=== PATIENT | female | born 1935 | race Native Hawaiian/Other Pacific Islander ===

== ENCOUNTER 2017-08-28 09:15 | Outpatient (CLI) | payer OTHER | END 2017-08-28 10:30 | disposition home or self-care (01) | LOC: MAMMO 09:15 | DX: N64.59 Other signs and symptoms in breast (principal) ==

== ENCOUNTER 2017-09-16 12:53 | Outpatient (CLI) | payer OTHER | END 2017-09-16 14:00 | disposition home or self-care (01) | LOC: US 12:53 | DX: R42 Dizziness and giddiness (principal) ==

== ENCOUNTER 2018-03-02 16:12 | Outpatient (CLI) | payer OTHER | END 2018-03-02 20:51 | disposition home or self-care (01) | LOC: US 16:12 | DX: M79.605 Pain in left leg (principal); M79.89 Other specified soft tissue disorders ==

== ENCOUNTER 2018-03-09 10:25 | Outpatient (CLI) | payer OTHER ==
[2018-03-09 11:07] LABS: PLATELET COUNT 399 K/uL (152-353)
== END 2018-03-09 18:53 | disposition home or self-care (01) ==
LOC: LABW 10:25
PROVIDERS: Nurse Practitioner
DX: E78.4 Other hyperlipidemia (principal); R53.83 Other fatigue; I10 Essential (primary) hypertension; E55.9 Vitamin D deficiency, unspecified; D51.8 Other vitamin B12 deficiency anemias
CPT/HCPCS: 36415; 80053; 80061; 82306; 82607; 83735; 84439; 84443; 85027

== ENCOUNTER 2018-05-20 10:17 | Outpatient (CLI) | payer OTHER | END 2018-05-20 22:38 | disposition home or self-care (01) | LOC: CT 10:17 | DX: M54.89 Other dorsalgia (principal) ==

== ENCOUNTER 2019-05-27 17:26 | Emergency (ER) | payer OTHER ==
[~2019-05-27] VITALS: Ht 261.6 cm; Wt 72.6 kg
[2019-05-27 22:45] VITALS: BP 135/78; TEMP 98.2
== END 2019-05-27 22:45 | disposition home or self-care (01) ==
LOC: ED 17:26
DX: M25.511 Pain in right shoulder (principal)
CPT/HCPCS: 96372; 99283; J1885; J2270; J2405

== ENCOUNTER 2019-09-22 07:46 | Inpatient (IN) | payer OTHER ==
[~2019-09-22] VITALS: Ht 161.3 cm; Wt 77.6 kg
[2019-09-22 07:52] VITALS: BP 176/80; TEMP 97.2
[2019-09-22] MEDS ORDERED: KAPSPARGO SPRIN50 MG PO (08:06)
[2019-09-22] MEDS ORDERED: RANITIDINE HYD300 MG PO (08:07)
[2019-09-22] MEDS ORDERED: LORA0.5T17 PO (08:13)
[2019-09-22] MEDS ORDERED: OMEP40CA PO (08:15)
[2019-09-22] MEDS ORDERED: HYDR25TA60 PO (08:15)
[2019-09-22] MEDS ORDERED: TRAZODONE HYDR100 MG PO (08:23)
[2019-09-22] MEDS ORDERED: SIMV40TA57 PO (08:23)
[2019-09-22 08:30] VITALS: BP 165/69
[2019-09-22] MEDS ORDERED: DICYCLOMINE HYD10 MG PO (08:32)
[2019-09-22] MEDS ORDERED: UNITH DIRECT25 MCG PO (08:33)
[2019-09-22] MEDS ORDERED: IRBESARTAN75 MG PO (08:34)
[2019-09-22 08:39] LABS: PLATELET COUNT 356 K/uL (152-353)
[2019-09-22 08:47] LABS: POTASSIUM 4.1 mmol/L (3.6-5.2)
[2019-09-22 09:30] VITALS: BP 154/63
[2019-09-22 13:07] VITALS: BP 182/77; TEMP 97.5; Ht 161.3 cm; Wt 77.6 kg
[2019-09-22 16:00] VITALS: BP 165/85; TEMP 97.9
[2019-09-22 20:00] VITALS: BP 161/71; TEMP 98.8
[2019-09-23] VITALS: BP 164/73; TEMP 97.9
[2019-09-23 04:00] VITALS: BP 166/75; TEMP 97.8
[2019-09-23 04:52] LABS: PLATELET COUNT 423 K/uL (152-353)
[2019-09-23 05:09] LABS: POTASSIUM 4.6 mmol/L (3.6-5.2)
[2019-09-23 08:00] VITALS: BP 183/91; TEMP 97.9
[2019-09-23 12:00] VITALS: BP 178/79; TEMP 98.1
[2019-09-23 16:00] VITALS: BP 143/69; TEMP 97.7
[2019-09-23 20:00] VITALS: BP 138/66; TEMP 98.2
[2019-09-24] VITALS (7 sets, daily range): BP systolic 121–181; BP diastolic 52–87; TEMP 97.4–98.8
[2019-09-24 11:39] LABS: PLATELET COUNT 349 K/uL (152-353)
[2019-09-24 11:59] LABS: POTASSIUM 3.7 mmol/L (3.6-5.2)
[2019-09-25 04:00] VITALS: BP 176/90; TEMP 98.3
[2019-09-25 12:00] VITALS: BP 177/75; TEMP 98.2
[2019-09-25 16:00] VITALS: BP 193/83; TEMP 98.5
[2019-09-25 20:00] VITALS: BP 154/63; TEMP 98.1
[2019-09-26] VITALS: BP 137/55; TEMP 97.5
[2019-09-26 04:00] VITALS: BP 134/55; TEMP 98.3
[2019-09-26 08:00] VITALS: BP 169/72; TEMP 97.5
[2019-09-26 16:00] VITALS: BP 183/77; TEMP 98.4
[2019-09-26 20:00] VITALS: BP 179/83; TEMP 98
[2019-09-27] VITALS: BP 145/59; TEMP 98.3
[2019-09-27 04:00] VITALS: BP 158/64; TEMP 98.1
[2019-09-27 08:00] VITALS: BP 199/78; TEMP 96.9
[2019-09-27 12:00] VITALS: BP 174/73; TEMP 98.6
[2019-09-27 16:00] VITALS: BP 165/76; TEMP 98.3
[2019-09-27 20:00] VITALS: BP 161/71; TEMP 98.2
[2019-09-28] VITALS: BP 169/80; TEMP 97.9
[2019-09-28 04:00] VITALS: BP 182/87; TEMP 98.5
[2019-09-28 08:00] VITALS: BP 184/80; TEMP 98.2
== END 2019-09-28 11:00 | disposition home or self-care (01) | DRG 149 ==
LOC: ED 07:46 → MED/SURG 09:55 → ED 09:55 → MED/SURG 09:56
PROVIDERS: Emergency Medicine; ADMIT Internal Medicine
DX: H81.13 Benign paroxysmal vertigo, bilateral (principal); N39.0 Urinary tract infection, site not specified; I10 Essential (primary) hypertension; E03.8 Other specified hypothyroidism; K21.9 Gastro-esophageal reflux disease without esophagitis; E78.49 Other hyperlipidemia; F41.8 Other specified anxiety disorders; M79.7 Fibromyalgia; B96.20 Unspecified Escherichia coli [E. coli] as the cause of diseases classified elsewhere
CPT/HCPCS: 80048; 80053; 81000; 84443; 85027; 87077; 87086; 87088; 87186; 87651; 93005; 99283; J0360; J0696; J1650; J3490

== ENCOUNTER 2019-10-18 09:20 | Emergency (ER) | payer OTHER ==
[~2019-10-18] VITALS: Ht 161.3 cm; Wt 72.6 kg
[~2019-10-18 09:20] MED LIST: DICYCLOMINE HYD10 MG PO; HYDR25TA60 PO; IRBESARTAN75 MG PO; KAPSPARGO SPRIN50 MG PO; LORA0.5T17 PO; OMEP40CA PO; RANITIDINE HYD300 MG PO; SIMV40TA57 PO; TRAZODONE HYDR100 MG PO; UNITH DIRECT25 MCG PO
[2019-10-18 11:55] VITALS: BP 152/67; TEMP 97.6
== END 2019-10-18 11:55 | disposition home or self-care (01) ==
LOC: ED 09:20
DX: N39.0 Urinary tract infection, site not specified (principal); S09.8XXA Other specified injuries of head, initial encounter; W01.198A Fall on same level from slipping, tripping and stumbling with subsequent striking against other object, initial encounter; Z91.81 History of falling; Y92.89 Other specified places as the place of occurrence of the external cause
CPT/HCPCS: 81000; 87077; 87086; 87088; 87186; 99282

== ENCOUNTER 2021-05-24 15:40 | Observation (INO) | payer OTHER ==
[~2021-05-24] VITALS: Ht 162.6 cm; Wt 81.2 kg
[2021-05-24 15:45] VITALS: BP 156/77; TEMP 99
[2021-05-24 16:06] LABS: PLATELET COUNT 494 K/uL (152-353)
[2021-05-24 16:14] LABS: POTASSIUM 4.1 mmol/L (3.6-5.2); SODIUM 129 mmol/L (136-145)
[2021-05-24 16:28] LABS: PARTIAL THROMBOPLASTIN TIME 23.9 SECONDS (24.5-33.6)
[2021-05-24 16:45] VITALS: BP 148/68
[2021-05-24 18:34] VITALS: BP 163/63; TEMP 98.2; Ht 162.6 cm; Wt 81.2 kg
[2021-05-24 20:00] VITALS: BP 147/67; TEMP 97.9
[2021-05-24] MEDS ORDERED: LEVO-T25 MCG PO (21:20)
[2021-05-24] MEDS ORDERED: CITALOPRAM10 M1 PO (21:22)
[2021-05-24] MEDS ORDERED: ALLERGY RELF10 MG PO (21:23)
[2021-05-24] MEDS ORDERED: NITROFURANTOIN100 MG PO (21:26)
[2021-05-24 23:54] VITALS: BP 149/68; TEMP 98.1
[2021-05-25 08:00] VITALS: BP 172/80; TEMP 97.7
[2021-05-25 12:00] VITALS: BP 177/75; TEMP 98.3
[2021-05-25 12:26] LABS: POTASSIUM 4.4 mmol/L (3.6-5.2)
[2021-05-25 12:39] LABS: PLATELET COUNT 496 K/uL (152-353)
[2021-05-25 16:00] VITALS: BP 188/88; TEMP 98.5
[2021-05-25 20:00] VITALS: BP 186/78; TEMP 98.1
[2021-05-25 21:03] VITALS: BP 165/80
[2021-05-25 23:52] VITALS: BP 149/72; TEMP 98
[2021-05-26 04:08] VITALS: BP 155/73; TEMP 97.7
[2021-05-26 05:09] LABS: PLATELET COUNT 443 K/uL (152-353)
[2021-05-26 05:13] LABS: POTASSIUM 4.2 mmol/L (3.6-5.2)
[2021-05-26 08:00] VITALS: BP 168/82; TEMP 98
[2021-05-26 12:00] VITALS: BP 165/77; TEMP 98.1
[2021-05-26 16:00] VITALS: BP 148/62; TEMP 98.1
[2021-05-26 20:00] VITALS: BP 161/81; BP 161/84; TEMP 98.6
[2021-05-27] VITALS: BP 155/71; TEMP 98
[2021-05-27 04:00] VITALS: BP 150/74; TEMP 97.8
[2021-05-27 05:21] LABS: PLATELET COUNT 457 K/uL (152-353)
[2021-05-27 05:25] LABS: POTASSIUM 4.4 mmol/L (3.6-5.2)
[2021-05-27 08:00] VITALS: BP 160/85; TEMP 98
[2021-05-27 12:00] VITALS: BP 170/72; TEMP 98.2
[2021-05-27 16:00] VITALS: BP 177/79; TEMP 98
[2021-05-27 20:00] VITALS: BP 161/74; TEMP 97.7
[2021-05-28] VITALS: BP 139/68; TEMP 97.5
[2021-05-28 04:00] VITALS: BP 185/84; TEMP 97.2
[2021-05-28 05:46] LABS: PLATELET COUNT 492 K/uL (152-353)
[2021-05-28 06:16] LABS: POTASSIUM 3.9 mmol/L (3.6-5.2)
[2021-05-28 08:00] VITALS: BP 153/61; TEMP 98.8
[2021-05-28 12:00] VITALS: BP 193/92; TEMP 98.3
[2021-05-28] MEDS ORDERED: CITA20TA2 PO (13:30)
[2021-05-28] MEDS ORDERED: LEVAQUIN250 MG PO (13:31)
== END 2021-05-28 15:55 | disposition home or self-care (01) ==
LOC: ED 15:40 → MED/SURG 17:15
PROVIDERS: ADMIT Hospitalist; ATTEND Internal Medicine
DX: G92 Toxic encephalopathy (principal); N39.0 Urinary tract infection, site not specified; I10 Essential (primary) hypertension; E87.1 Hypo-osmolality and hyponatremia; D72.818 Other decreased white blood cell count; G89.29 Other chronic pain; F41.8 Other specified anxiety disorders; D72.828 Other elevated white blood cell count; R53.1 Weakness; E03.8 Other specified hypothyroidism; R10.9 Unspecified abdominal pain
CPT/HCPCS: 36415; 80048; 80053; 81000; 82533; 82550; 82948; 83880; 84443; 84484; 85027; 85610; 85730; 87635; 93005; 96360; 96361; 96365; 96367; 96372; 96375; 99220; 99284; G0378; J0360; J0696; J1650; J1885; J1956; J2405; J3490; U0003

== ENCOUNTER 2021-06-16 12:39 | Emergency (ER) | payer OTHER ==
[~2021-06-16] VITALS: Ht 162.6 cm; Wt 81.2 kg
[~2021-06-16 12:39] MED LIST changes: +ALLERGY RELF10 MG PO; +CITA20TA2 PO; +CITALOPRAM10 M1 PO; +LEVAQUIN250 MG PO; +LEVO-T25 MCG PO; +NITROFURANTOIN100 MG PO
[2021-06-16 13:23] LABS: PLATELET COUNT 562 K/uL (152-353)
[2021-06-16 13:29] LABS: POTASSIUM 4.2 mmol/L (3.6-5.2); SODIUM 127 mmol/L (136-145)
[2021-06-16 13:37] LABS: PARTIAL THROMBOPLASTIN TIME 23.6 SECONDS (24.5-33.6)
[2021-06-16 18:46] LABS: POTASSIUM 4.4 mmol/L (3.6-5.2)
[2021-06-16 21:25] VITALS: BP 180/92; TEMP 97.6
== END 2021-06-16 21:25 | disposition home or self-care (01) ==
LOC: ED 12:39
PROVIDERS: Family Medicine
DX: E87.1 Hypo-osmolality and hyponatremia (principal); N39.0 Urinary tract infection, site not specified; R73.9 Hyperglycemia, unspecified; R06.09 Other forms of dyspnea; R06.02 Shortness of breath
CPT/HCPCS: 36415; 80048; 80053; 81000; 82550; 83880; 84484; 85027; 85379; 85610; 85730; 87077; 87086; 87088; 87186; 96360; 96365; 99284; J0696; Q9963

== ENCOUNTER 2021-12-20 18:42 | Emergency (ER) | payer OTHER ==
[~2021-12-20] VITALS: Ht 162.6 cm; Wt 81.2 kg
[2021-12-20 19:01] LABS: PLATELET COUNT 500 K/uL (152-353)
[2021-12-20 19:11] LABS: POTASSIUM 3.3 mmol/L (3.6-5.2)
[2021-12-20 21:30] VITALS: BP 137/71; TEMP 98.7
== END 2021-12-20 21:30 | disposition home or self-care (01) ==
LOC: ED 18:42
PROVIDERS: Emergency Medicine
DX: R06.09 Other forms of dyspnea (principal); R73.9 Hyperglycemia, unspecified; E87.6 Hypokalemia
CPT/HCPCS: 36415; 80053; 83880; 84484; 85027; 85379; 85610; 85730; 93005; 96360; 96365; 99284; J0696; Q9963

== ENCOUNTER 2022-01-03 09:47 | Inpatient (IN) | payer OTHER | END 2022-02-01 08:44 | disposition still patient (30) | LOC: PAVB 09:47 | PROVIDERS: ADMIT Internal Medicine; ATTEND Internal Medicine ==

== ENCOUNTER 2022-01-04 06:39 | Outpatient (CLI) | payer OTHER ==
[2022-01-04 08:14] LABS: POTASSIUM 3.6 mmol/L (3.6-5.2)
[2022-01-04 08:15] LABS: PLATELET COUNT 531 K/uL (152-353)
== END 2022-01-04 19:50 | disposition home or self-care (01) ==
LOC: LAB 06:39
PROVIDERS: ATTEND Internal Medicine
DX: E11.9 Type 2 diabetes mellitus without complications (principal); I10 Essential (primary) hypertension
CPT/HCPCS: 80053; 80061; 82306; 82607; 82728; 83036; 83540; 84443; 85027; 87081

== ENCOUNTER 2022-02-01 10:10 | Inpatient (IN) | payer OTHER | END 2022-03-03 11:02 | disposition still patient (30) | LOC: PAVB 10:10 | PROVIDERS: ADMIT Internal Medicine; ATTEND Internal Medicine ==

== ENCOUNTER 2022-03-03 04:10 | Inpatient (IN) | payer OTHER | END 2022-04-03 09:50 | disposition still patient (30) | LOC: PAVB 04:10 | PROVIDERS: ADMIT Internal Medicine; ATTEND Internal Medicine ==

== ENCOUNTER 2022-04-03 09:38 | Outpatient (CLI) | payer OTHER | END 2022-04-03 19:10 | disposition home or self-care (01) | LOC: LAB 09:38 | PROVIDERS: ATTEND Internal Medicine | DX: E11.9 Type 2 diabetes mellitus without complications (principal) | CPT/HCPCS: 83036 ==

== ENCOUNTER 2022-04-03 17:19 | Inpatient (IN) | payer OTHER | END 2022-05-03 09:11 | disposition still patient (30) | LOC: PAVB 17:19 | PROVIDERS: ADMIT Internal Medicine; ATTEND Internal Medicine ==

== ENCOUNTER 2022-05-03 12:07 | Inpatient (IN) | payer OTHER | END 2022-06-03 09:21 | disposition still patient (30) | LOC: PAVB 12:07 | PROVIDERS: ADMIT Internal Medicine; ATTEND Internal Medicine ==

== ENCOUNTER 2022-05-10 13:39 | Outpatient (CLI) | payer OTHER | END 2022-05-10 20:00 | disposition home or self-care (01) | LOC: LAB 13:39 | PROVIDERS: ATTEND Internal Medicine | DX: N39.0 Urinary tract infection, site not specified (principal) | CPT/HCPCS: 81000; 87077; 87086; 87088; 87186 ==

== ENCOUNTER 2022-05-13 10:52 | Outpatient (CLI) | payer OTHER ==
[2022-05-13 14:27] LABS: POTASSIUM 3.4 mmol/L (3.6-5.2)
== END 2022-05-13 19:01 | disposition home or self-care (01) ==
LOC: LAB 10:52 → US 10:52
PROVIDERS: ATTEND Internal Medicine
DX: M79.604 Pain in right leg (principal); R60.0 Localized edema; I10 Essential (primary) hypertension
CPT/HCPCS: 80048

== ENCOUNTER 2022-05-14 12:32 | Outpatient (CLI) | payer OTHER ==
[~2022-05-14] VITALS: Ht 162.6 cm; Wt 79.0 kg
[2022-05-14 13:10] VITALS: BP 106/55; TEMP 98.5
[2022-05-14 15:30] VITALS: BP 101/48; TEMP 98.3
--- NOTE | 2022-05-14 16:38 | NUR ---
1310 PT TO FACILITY VIA WC ASSISTED BY [facility]. VS OBTAINED. 22G PIV TO RFA X2 ATTEMPTS. 1442 INFUSION STARTED AT THIS TIME. 1500 PT TOLERATING INFUSION WITH NO ADVERSE REACTIONS SUSPECTED. PT DENIES COMPLAINTS AT THIS TIME 1516 INFUSION COMPLETED WITHNO COMPLICATIONS OR ADVERSE REACTIONS. IV CAPPED WITH CUROS. 1540 PT ASSISTED BACK TO [facility] VIA WC ACCOMPANIED BY [facility] STA[facility]. PT IN NO DISTRESS
== END 2022-05-14 18:53 | disposition home or self-care (01) ==
LOC: INF 12:32
PROVIDERS: ATTEND Internal Medicine
DX: N39.0 Urinary tract infection, site not specified (principal)
CPT/HCPCS: 96365; J1580

== ENCOUNTER 2022-05-15 01:54 | Outpatient (CLI) | payer OTHER ==
[~2022-05-15] VITALS: Ht 170.2 cm; Wt 80.7 kg
[2022-05-15 13:12] VITALS: BP 119/47; TEMP 97.9
[2022-05-15 14:10] VITALS: BP 116/52; TEMP 98.2
== END 2022-05-15 18:50 | disposition home or self-care (01) ==
LOC: LAB 01:54 → INF 01:54
PROVIDERS: ATTEND Internal Medicine
DX: N39.0 Urinary tract infection, site not specified (principal); Z16.22 Resistance to vancomycin related antibiotics
CPT/HCPCS: 36415; 80170; 96365; J1580

== ENCOUNTER 2022-05-16 12:30 | Outpatient (CLI) | payer OTHER ==
[~2022-05-16] VITALS: Ht 162.6 cm; Wt 55.5 kg
[2022-05-16 13:02] VITALS: BP 119/55; TEMP 97.8
--- NOTE | 2022-05-16 13:57 | NUR ---
1302 PT ARRIVED TO ROOM 1129 VIA WHEELCHAIR ACCOMPANIED BY [facility] STAFF VS OBTAINED 22 GAUGE PIV TO RFA FLUSH WITH 10ML NS SITE WNL PT DENIES COMPLAINT
[2022-05-16 14:36] VITALS: BP 111/71; TEMP 97.9
--- NOTE | 2022-05-16 15:04 | NUR ---
1410 PT TOLERATED INFUSION WITH NO COMPLAINTS NO ADVERSE REACTION SUSPECTED 1431 INFUSION COMPLETED PT TOLERATED WELL WITH NO ADVERSE REACTIONS 22 GAUGE PIV FLUSHED 10ML NS CAPPED WITH CUROS CAP. 1436 NOTIFIED [facility] PAITENT WAS READY TO RETURNED TO [facility] VS OBTAINED 1454 PATIENT LEFT FACILITY VIA WHEELCHAIR ACCOMPANIED BY [facility] STAFF PT IN NO DISTRESS WILL RETURN TOMORROW FOR SCHEDULED INFUSION
== END 2022-05-16 19:07 | disposition home or self-care (01) ==
LOC: INF 12:30
PROVIDERS: ATTEND Internal Medicine
DX: N39.0 Urinary tract infection, site not specified (principal)
CPT/HCPCS: 96365; J1580

== ENCOUNTER 2022-05-17 12:52 | Outpatient (CLI) | payer OTHER ==
[~2022-05-17] VITALS: Ht 167.6 cm; Wt 80.7 kg
[2022-05-17 13:10] VITALS: BP 107/51; TEMP 98
[2022-05-17 14:00] VITALS: BP 131/51; TEMP 97.9
== END 2022-05-17 20:53 | disposition home or self-care (01) ==
LOC: INF 12:52
PROVIDERS: ATTEND Internal Medicine
DX: N39.0 Urinary tract infection, site not specified (principal)
CPT/HCPCS: 96365; J1580

== ENCOUNTER 2022-05-18 12:59 | Outpatient (CLI) | payer OTHER ==
[~2022-05-18] VITALS: Ht 167.6 cm; Wt 80.7 kg
== END 2022-05-18 22:00 | disposition home or self-care (01) ==
LOC: INF 12:59
PROVIDERS: ATTEND Internal Medicine
DX: N39.0 Urinary tract infection, site not specified (principal)
CPT/HCPCS: 96365

== ENCOUNTER 2022-05-19 13:09 | Outpatient (CLI) | payer OTHER ==
[~2022-05-19] VITALS: Ht 167.6 cm; Wt 77.1 kg
== END 2022-05-19 22:10 | disposition home or self-care (01) ==
LOC: INF 13:09
PROVIDERS: ATTEND Internal Medicine
DX: N39.0 Urinary tract infection, site not specified (principal)
CPT/HCPCS: 96365; J1580

== ENCOUNTER 2022-06-03 13:48 | Inpatient (IN) | payer OTHER ==
[2022-06-15] MEDS ORDERED: METFORMIN 500 MG (06:26)
[2022-06-15] MEDS ORDERED: RISP0.25 PO (06:33)
[2022-06-15] MEDS ORDERED: LORA0.5T17 PO (06:34)
[2022-06-15] MEDS ORDERED: KAOPECTATE262 MG/15 PO (06:36)
[2022-06-18] MEDS ORDERED: METO-837 PO (11:47)
[2022-07-04 08:01] LABS: PLATELET COUNT 498 K/uL (152-353)
[2022-07-04 08:26] LABS: POTASSIUM 3.3 mmol/L (3.6-5.2)
== END 2022-07-04 09:07 | disposition still patient (30) ==
LOC: PAVB 13:48
PROVIDERS: ADMIT Internal Medicine; ATTEND Internal Medicine
DX: N17.9 Acute kidney failure, unspecified (principal); G92.8 Other toxic encephalopathy; N39.0 Urinary tract infection, site not specified; B96.20 Unspecified Escherichia coli [E. coli] as the cause of diseases classified elsewhere; M62.81 Muscle weakness (generalized); R26.2 Difficulty in walking, not elsewhere classified; Z74.1 Need for assistance with personal care
CPT/HCPCS: 80053; 80061; 82306; 83036; 83516; 84156; 84165; 84166; 84443; 85027; 86037; 86160

== ENCOUNTER 2022-06-06 12:53 | Emergency (ER) | payer OTHER ==
[~2022-06-06] VITALS: Ht 167.6 cm; Wt 69.4 kg
[2022-06-06 12:53] VITALS: TEMP 97
[2022-06-06 13:16] LABS: PLATELET COUNT 525 K/uL (152-353)
[2022-06-06 13:31] LABS: POTASSIUM 3.8 mmol/L (3.6-5.2)
[2022-06-06 15:53] VITALS: BP 154/64
== END 2022-06-06 17:21 | disposition short-term general hospital (02) ==
LOC: ED 12:53
PROVIDERS: Emergency Medicine
PROC: 0T9B70Z Drainage of Bladder with Drainage Device, Via Natural or Artificial Opening (ICD-10-PCS; principal; 2022-06-06)
DX: N17.8 Other acute kidney failure (principal); R94.4 Abnormal results of kidney function studies; I50.9 Heart failure, unspecified; R41.0 Disorientation, unspecified; U07.1 COVID-19
CPT/HCPCS: 51702; 80053; 81002; 83880; 84484; 85027; 87635; 93005; 96360; 96361; 99284; U0003

== ENCOUNTER 2022-06-14 18:38 | Inpatient (IN) | payer OTHER ==
[~2022-06-14] VITALS: Ht 162.6 cm; Wt 80.4 kg
[2022-06-14] VITALS (12 sets, daily range): BP systolic 141–191; BP diastolic 55–96; TEMP 97.8
[2022-06-14 20:51] LABS: PLATELET COUNT 354 K/uL (152-353)
[2022-06-14 20:59] LABS: POTASSIUM 3.6 mmol/L (3.6-5.2)
[2022-06-14 21:12] LABS: PARTIAL THROMBOPLASTIN TIME 24.3 SECONDS (24.5-33.6)
[2022-06-15] VITALS (10 sets, daily range): BP systolic 117–183; BP diastolic 66–86; TEMP 97.5–98; Ht 162.6 cm; Wt 80.4 kg
[2022-06-15] MEDS ORDERED: METFORMIN 500 MG (06:26)
[2022-06-15] MEDS ORDERED: RISP0.25 PO (06:33)
[2022-06-15] MEDS ORDERED: LORA0.5T17 PO (06:34)
[2022-06-15] MEDS ORDERED: KAOPECTATE262 MG/15 PO (06:36)
[2022-06-15 06:56] LABS: PLATELET COUNT 316 K/uL (152-353)
[2022-06-15 07:13] LABS: POTASSIUM 3.5 mmol/L (3.6-5.2)
[2022-06-16] VITALS: BP 119/68; TEMP 97.6
[2022-06-16 04:00] VITALS: BP 152/68; TEMP 98
[2022-06-16 08:00] VITALS: BP 169/70; TEMP 98.8
[2022-06-16 08:15] LABS: PLATELET COUNT 292 K/uL (152-353)
[2022-06-16 08:18] LABS: POTASSIUM 3.6 mmol/L (3.6-5.2)
[2022-06-16 12:00] VITALS: BP 133/63; TEMP 98.4
[2022-06-16 16:05] VITALS: BP 156/63; TEMP 98.3
[2022-06-16 19:50] VITALS: BP 183/80; TEMP 98.5
[2022-06-17] VITALS (11 sets, daily range): BP systolic 118–192; BP diastolic 59–88; TEMP 97.8–98.7
[2022-06-17 05:09] LABS: PLATELET COUNT 361 K/uL (152-353)
[2022-06-17 05:18] LABS: POTASSIUM 3.6 mmol/L (3.6-5.2)
[2022-06-18] VITALS: BP 136/79; TEMP 96.6
[2022-06-18 04:00] VITALS: BP 171/85; TEMP 97.6
[2022-06-18 05:21] LABS: PLATELET COUNT 303 K/uL (152-353)
[2022-06-18 05:37] LABS: POTASSIUM 3.6 mmol/L (3.6-5.2)
[2022-06-18 07:53] VITALS: BP 145/59; TEMP 98.3
[2022-06-18] MEDS ORDERED: METO-837 PO (11:47)
[2022-06-18 12:14] VITALS: BP 151/62; TEMP 98.7
== END 2022-06-18 15:23 | DRG 684 ==
LOC: ED 18:38 → MED/SURG 23:40 → UNDODEPER 06-17 01:30 → MED/SURG 06-18 15:23
PROVIDERS: ADMIT Emergency Medicine; ATTEND Internal Medicine
DX: N17.8 Other acute kidney failure (principal); R79.1 Abnormal coagulation profile; I10 Essential (primary) hypertension; R06.09 Other forms of dyspnea; E03.8 Other specified hypothyroidism; E78.49 Other hyperlipidemia; E11.65 Type 2 diabetes mellitus with hyperglycemia; M79.7 Fibromyalgia; K21.9 Gastro-esophageal reflux disease without esophagitis; G30.8 Other Alzheimer's disease; F02.80 Dementia in other diseases classified elsewhere, unspecified severity, without behavioral disturbance, psychotic disturbance, mood disturbance, and anxiety; Z85.3 Personal history of malignant neoplasm of breast
CPT/HCPCS: 36415; 80048; 80053; 82948; 83880; 84484; 85027; 85379; 85610; 85730; 87635; 93005; 96360; 96361; 96372; 96375; 99284; A9540; A9567; J0360; J1644; J1650; J2405; J3490; U0003

== ENCOUNTER 2022-07-19 14:32 | Outpatient (CLI) | payer OTHER ==
[~2022-07-19 14:32] MED LIST changes: +KAOPECTATE262 MG/15 PO; +METFORMIN 500 MG; +METO-837 PO; +RISP0.25 PO
== END 2022-07-19 22:24 | disposition home or self-care (01) ==
LOC: RAD 14:32
PROVIDERS: ATTEND Internal Medicine Endocrinology, Diabetes & Metabolism
DX: M25.532 Pain in left wrist (principal); R22.32 Localized swelling, mass and lump, left upper limb

== ENCOUNTER 2022-08-03 12:29 | Inpatient (IN) | payer OTHER | END 2022-09-03 14:46 | disposition still patient (30) | LOC: PAVB 12:29 | PROVIDERS: ADMIT Internal Medicine Endocrinology, Diabetes & Metabolism; ATTEND Internal Medicine Endocrinology, Diabetes & Metabolism ==

== ENCOUNTER 2022-08-09 08:52 | Outpatient (CLI) | payer OTHER ==
[2022-08-09 10:38] LABS: PLATELET COUNT 414 K/uL (152-353)
[2022-08-09 10:49] LABS: POTASSIUM 2.7 mmol/L (3.6-5.2)
== END 2022-08-09 19:03 | disposition home or self-care (01) ==
LOC: LAB 08:52
PROVIDERS: ATTEND Internal Medicine Endocrinology, Diabetes & Metabolism
DX: N17.9 Acute kidney failure, unspecified (principal); D63.1 Anemia in chronic kidney disease; I10 Essential (primary) hypertension; E79.0 Hyperuricemia without signs of inflammatory arthritis and tophaceous disease; R80.8 Other proteinuria; N25.81 Secondary hyperparathyroidism of renal origin; E55.9 Vitamin D deficiency, unspecified
CPT/HCPCS: 80053; 80074; 82306; 83036; 83516; 83735; 83970; 84100; 84165; 84550; 85027; 86037; 86160; 86592; 86701; 86702; 87389

== ENCOUNTER 2022-08-12 08:29 | Outpatient (CLI) | payer OTHER | END 2022-08-12 18:56 | disposition home or self-care (01) | LOC: LAB 08:29 | PROVIDERS: ATTEND Internal Medicine Endocrinology, Diabetes & Metabolism | DX: N17.9 Acute kidney failure, unspecified (principal) | CPT/HCPCS: 81000 ==

== ENCOUNTER 2022-08-23 05:49 | Outpatient (CLI) | payer OTHER ==
[2022-08-23 07:44] LABS: POTASSIUM 3.3 mmol/L (3.6-5.2)
== END 2022-08-23 18:49 | disposition home or self-care (01) ==
LOC: LAB 05:49
PROVIDERS: ATTEND Internal Medicine Endocrinology, Diabetes & Metabolism
DX: N17.9 Acute kidney failure, unspecified (principal)
CPT/HCPCS: 80069

== ENCOUNTER 2022-09-03 15:24 | Inpatient (IN) | payer OTHER ==
[2022-09-23] MEDS ORDERED: LORA0.5T17 PO (09:37)
[2022-09-23] MEDS ORDERED: CELEXA20 MG PO (09:37)
[2022-09-23] MEDS ORDERED: KAOPECTATE262 MG/15 PO (09:38)
[2022-09-23] MEDS ORDERED: EUTHYROX25 MCG PO (09:39)
[2022-09-23] MEDS ORDERED: MEGESTROL400 MG/10 PO (09:39)
[2022-09-23] MEDS ORDERED: MULTIVITAMIN1 TA1 PO (09:40)
[2022-09-23] MEDS ORDERED: METO25TA4 PO (09:40)
[2022-09-23] MEDS ORDERED: SIMV40TA57 PO (09:41)
== END 2022-10-03 15:04 | disposition still patient (30) ==
LOC: PAVB 15:24
PROVIDERS: ADMIT Internal Medicine Endocrinology, Diabetes & Metabolism; ATTEND Internal Medicine Endocrinology, Diabetes & Metabolism
DX: I50.9 Heart failure, unspecified (principal); J18.9 Pneumonia, unspecified organism; I21.4 Non-ST elevation (NSTEMI) myocardial infarction; M62.81 Muscle weakness (generalized); R27.8 Other lack of coordination; R48.8 Other symbolic dysfunctions

== ENCOUNTER 2022-09-22 19:14 | Inpatient (IN) | payer OTHER ==
[~2022-09-22] VITALS: Ht 152.4 cm; Wt 72.7 kg
[2022-09-22 19:14] VITALS: BP 163/70; TEMP 98.8
[2022-09-22 19:50] LABS: PLATELET COUNT 500 K/uL (152-353)
[2022-09-22 21:30] VITALS: BP 129/57
[2022-09-22 23:30] VITALS: BP 133/68
[2022-09-23] VITALS (9 sets, daily range): BP systolic 106–173; BP diastolic 55–76; TEMP 97.3–100.1; Ht 152.4 cm; Wt 72.7 kg
[2022-09-23] MEDS ORDERED: CELEXA20 MG PO (09:37)
[2022-09-23] MEDS ORDERED: LORA0.5T17 PO (09:37)
[2022-09-23] MEDS ORDERED: KAOPECTATE262 MG/15 PO (09:38)
[2022-09-23] MEDS ORDERED: EUTHYROX25 MCG PO (09:39)
[2022-09-23] MEDS ORDERED: MEGESTROL400 MG/10 PO (09:39)
[2022-09-23] MEDS ORDERED: MULTIVITAMIN1 TA1 PO (09:40)
[2022-09-23] MEDS ORDERED: METO25TA4 PO (09:40)
[2022-09-23] MEDS ORDERED: SIMV40TA57 PO (09:41)
[2022-09-23 10:11] LABS: POTASSIUM 3.8 mmol/L (3.6-5.2)
[2022-09-23 10:28] LABS: PLATELET COUNT 441 K/uL (152-353)
[2022-09-24 00:05] VITALS: BP 170/70; TEMP 98.7
[2022-09-24 01:05] VITALS: BP 163/64; TEMP 98.7
[2022-09-24 02:11] VITALS: BP 176/80; TEMP 99.1
[2022-09-24 04:00] VITALS: BP 180/80; TEMP 98.6
[2022-09-24 04:30] VITALS: BP 180/83; TEMP 98.6
[2022-09-24 04:55] VITALS: BP 170/78; TEMP 98.5
[2022-09-24 05:24] LABS: PLATELET COUNT 412 K/uL (152-353)
[2022-09-24 05:38] LABS: POTASSIUM 3.8 mmol/L (3.6-5.2)
== END 2022-09-24 07:15 | disposition short-term general hospital (02) | DRG 689 ==
LOC: ED 19:14 → MED/SURG 22:34
PROVIDERS: ADMIT Family Medicine; ATTEND Internal Medicine
PROC: 30233N1 Transfusion of Nonautologous Red Blood Cells into Peripheral Vein, Percutaneous Approach (ICD-10-PCS; principal; 2022-09-23)
PROC: 30233N1 Transfusion of Nonautologous Red Blood Cells into Peripheral Vein, Percutaneous Approach (ICD-10-PCS; 2022-09-24)
DX: N39.0 Urinary tract infection, site not specified (principal); I21.4 Non-ST elevation (NSTEMI) myocardial infarction; J18.8 Other pneumonia, unspecified organism; J95.87 Transfusion-associated dyspnea (TAD); I82.412 Acute embolism and thrombosis of left femoral vein; B96.20 Unspecified Escherichia coli [E. coli] as the cause of diseases classified elsewhere; I10 Essential (primary) hypertension; G30.8 Other Alzheimer's disease; F02.80 Dementia in other diseases classified elsewhere, unspecified severity, without behavioral disturbance, psychotic disturbance, mood disturbance, and anxiety; E78.49 Other hyperlipidemia; D50.8 Other iron deficiency anemias; R00.0 Tachycardia, unspecified; R06.82 Tachypnea, not elsewhere classified; E87.6 Hypokalemia; E83.42 Hypomagnesemia; E03.8 Other specified hypothyroidism; E11.65 Type 2 diabetes mellitus with hyperglycemia
CPT/HCPCS: 36415; 80048; 80053; 81000; 82272; 82607; 82728; 82746; 83540; 83735; 83880; 84484; 85014; 85018; 85027; 85379; 86078; 86850; 86900; 86901; 86922; 87077; 87086; 87088; 87186; 87635; 93005; 94664; 94667; 94668; 94760; 99283; J0696; J1200; J1650; J1940; J2916; J3475; J3490; P9016; U0003

== ENCOUNTER 2022-09-24 07:14 | Emergency (ER) | payer OTHER ==
[~2022-09-24] VITALS: Ht 162.6 cm; Wt 72.6 kg
[~2022-09-24 07:14] MED LIST changes: +CELEXA20 MG PO; +EUTHYROX25 MCG PO; +MEGESTROL400 MG/10 PO; +METO25TA4 PO; +MULTIVITAMIN1 TA1 PO
[2022-09-24 09:02] LABS: PLATELET COUNT 469 K/uL (152-353)
[2022-09-24 09:13] LABS: POTASSIUM 4.3 mmol/L (3.6-5.2)
[2022-09-24 10:50] VITALS: BP 166/75; TEMP 98.8
== END 2022-09-24 10:50 | disposition still patient (30) ==
LOC: ED 07:20
PROVIDERS: Emergency Medicine
PROC: 0T9B70Z Drainage of Bladder with Drainage Device, Via Natural or Artificial Opening (ICD-10-PCS; principal; 2022-09-24)
DX: I21.4 Non-ST elevation (NSTEMI) myocardial infarction (principal); J18.9 Pneumonia, unspecified organism; D64.89 Other specified anemias; Z86.718 Personal history of other venous thrombosis and embolism; Z79.01 Long term (current) use of anticoagulants; G30.8 Other Alzheimer's disease; F02.80 Dementia in other diseases classified elsewhere, unspecified severity, without behavioral disturbance, psychotic disturbance, mood disturbance, and anxiety; E11.9 Type 2 diabetes mellitus without complications; I10 Essential (primary) hypertension; E78.49 Other hyperlipidemia; R06.09 Other forms of dyspnea; T80.89XA Other complications following infusion, transfusion and therapeutic injection, initial encounter; Y84.8 Other medical procedures as the cause of abnormal reaction of the patient, or of later complication, without mention of misadventure at the time of the procedure; Y92.238 Other place in hospital as the place of occurrence of the external cause
CPT/HCPCS: 36600; 80053; 82272; 82805; 84484; 85027; 93005; 94660; 94760; 96365; 96375; 99285; J0696; J2930

== ENCOUNTER 2022-10-03 17:00 | Inpatient (IN) | payer OTHER | END 2022-11-03 10:36 | disposition still patient (30) | LOC: PAVB 17:00 | PROVIDERS: ADMIT Internal Medicine Endocrinology, Diabetes & Metabolism; ATTEND Internal Medicine Endocrinology, Diabetes & Metabolism | CPT/HCPCS: 83036 ==

== ENCOUNTER 2022-11-03 12:11 | Inpatient (IN) | payer OTHER | END 2022-12-04 08:43 | disposition still patient (30) | LOC: PAVB 12:11 | PROVIDERS: ADMIT Internal Medicine Endocrinology, Diabetes & Metabolism; ATTEND Internal Medicine Endocrinology, Diabetes & Metabolism ==

== ENCOUNTER 2022-11-12 05:50 | Outpatient (CLI) | payer OTHER | END 2022-11-12 20:31 | disposition home or self-care (01) | LOC: LAB 05:50 | PROVIDERS: ATTEND Internal Medicine Endocrinology, Diabetes & Metabolism | DX: R41.82 Altered mental status, unspecified (principal); R35.0 Frequency of micturition | CPT/HCPCS: 81000 ==

== ENCOUNTER 2022-12-04 10:44 | Inpatient (IN) | payer OTHER | END 2023-01-01 12:02 | disposition still patient (30) | LOC: PAVB 10:44 | PROVIDERS: ADMIT Internal Medicine Endocrinology, Diabetes & Metabolism; ATTEND Internal Medicine Endocrinology, Diabetes & Metabolism ==

== ENCOUNTER 2023-01-01 09:20 | Outpatient (CLI) | payer OTHER ==
[2023-01-01 10:10] LABS: PLATELET COUNT 427 K/uL (152-353)
== END 2023-01-01 19:13 | disposition home or self-care (01) ==
LOC: LAB 09:20
PROVIDERS: ATTEND Internal Medicine Endocrinology, Diabetes & Metabolism
DX: E11.9 Type 2 diabetes mellitus without complications (principal); I10 Essential (primary) hypertension
CPT/HCPCS: 83036; 85027

== ENCOUNTER 2023-01-01 12:39 | Inpatient (IN) | payer OTHER | END 2023-02-01 11:24 | disposition still patient (30) | LOC: PAVB 12:39 | PROVIDERS: ADMIT Internal Medicine Endocrinology, Diabetes & Metabolism; ATTEND Internal Medicine Endocrinology, Diabetes & Metabolism ==

== ENCOUNTER 2023-01-06 05:34 | Outpatient (CLI) | payer OTHER ==
[2023-01-06 06:28] LABS: POTASSIUM 5.1 mmol/L (3.6-5.2)
== END 2023-01-06 19:40 | disposition home or self-care (01) ==
LOC: LAB 05:34
PROVIDERS: ATTEND Internal Medicine Endocrinology, Diabetes & Metabolism
DX: E03.8 Other specified hypothyroidism (principal); E55.9 Vitamin D deficiency, unspecified; I10 Essential (primary) hypertension; N17.9 Acute kidney failure, unspecified
CPT/HCPCS: 36415; 80053; 80061; 82306; 84443

== ENCOUNTER 2023-01-31 18:38 | Emergency (ER) | payer OTHER ==
[~2023-01-31] VITALS: Ht 162.6 cm; Wt 70.4 kg
[2023-01-31 20:35] VITALS: BP 133/62
== END 2023-01-31 20:35 | disposition home or self-care (01) ==
LOC: ED 18:38
DX: K21.9 Gastro-esophageal reflux disease without esophagitis (principal)
CPT/HCPCS: 36415; 84484; 93005; 99283

== ENCOUNTER 2023-02-01 11:45 | Inpatient (IN) | payer OTHER | END 2023-03-03 10:44 | disposition still patient (30) | LOC: PAVB 11:45 | PROVIDERS: ADMIT Internal Medicine Endocrinology, Diabetes & Metabolism; ATTEND Internal Medicine Endocrinology, Diabetes & Metabolism ==

== ENCOUNTER 2023-02-03 08:30 | Outpatient (CLI) | payer OTHER ==
[2023-02-03 09:08] LABS: PLATELET COUNT 457 K/uL (152-353)
[2023-02-03 09:35] LABS: POTASSIUM 5.1 mmol/L (3.6-5.2)
== END 2023-02-03 20:06 | disposition home or self-care (01) ==
LOC: LAB 08:30
PROVIDERS: ATTEND Internal Medicine Endocrinology, Diabetes & Metabolism
DX: E11.9 Type 2 diabetes mellitus without complications (principal); I10 Essential (primary) hypertension; E78.00 Pure hypercholesterolemia, unspecified; E03.8 Other specified hypothyroidism; E55.9 Vitamin D deficiency, unspecified
CPT/HCPCS: 80053; 80061; 82306; 83036; 84443; 85027

== ENCOUNTER 2023-03-03 12:16 | Inpatient (IN) | payer OTHER ==
[~2023-03-03 12:16] MED LIST changes: -CELEXA20 MG PO
[2023-03-19] MEDS ORDERED: LOSA50TA PO (07:59)
[2023-03-19] MEDS ORDERED: [UNRECOGNIZED DRUG - OTHER] OPTH (08:02)
[2023-03-19] MEDS ORDERED: PANTOPRAZOLE 40MG TA PO (08:03)
[2023-03-19] MEDS ORDERED: ELIQUIS5 MG PO (08:04)
[2023-03-19] MEDS ORDERED: MAGIC CUP (08:06)
[2023-03-19] MEDS ORDERED: ENSURE PLUS PO (08:07)
[2023-03-19] MEDS ORDERED: TYLENOL 8 HOUR650 MG PO (08:09)
[2023-03-19] MEDS ORDERED: GENTEAL TEARS M1 SO1 OPTH (08:10)
[2023-03-19] MEDS ORDERED: ALUM-67 PO (08:13)
[2023-03-21] MEDS ORDERED: PANTOPRAZOLE 40MG TA PO (14:01)
[2023-03-21] MEDS ORDERED: ERTAPENEM1 GM IM (14:02)
[2023-03-21] MEDS ORDERED: SM IRON325 MG PO (14:04)
[2023-03-21] MEDS ORDERED: DOCU100C10 PO (14:05)
== END 2023-04-03 10:35 | disposition still patient (30) ==
LOC: PAVB 12:16
PROVIDERS: ADMIT Internal Medicine Endocrinology, Diabetes & Metabolism; ATTEND Internal Medicine Endocrinology, Diabetes & Metabolism

== ENCOUNTER 2023-03-18 17:23 | Inpatient (IN) | payer OTHER ==
[~2023-03-18] VITALS: Ht 162.6 cm; Wt 72.2 kg
[2023-03-18 17:23] VITALS: BP 165/115; TEMP 97.7
[2023-03-18 17:50] LABS: PLATELET COUNT 540 K/uL (152-353)
[2023-03-18 18:01] LABS: POTASSIUM 4.6 mmol/L (3.6-5.2)
[2023-03-18 18:14] LABS: PARTIAL THROMBOPLASTIN TIME 24.7 SECONDS (23.9-36.7)
[2023-03-19] VITALS (7 sets, daily range): BP systolic 147–187; BP diastolic 53–75; TEMP 98.4–98.9; Ht 162.6 cm; Wt 72.2 kg
[2023-03-19 05:32] LABS: PLATELET COUNT 516 K/uL (152-353)
[2023-03-19 05:42] LABS: POTASSIUM 4.3 mmol/L (3.6-5.2)
[2023-03-19] MEDS ORDERED: LOSA50TA PO (07:59)
[2023-03-19] MEDS ORDERED: [UNRECOGNIZED DRUG - OTHER] OPTH (08:02)
[2023-03-19] MEDS ORDERED: PANTOPRAZOLE 40MG TA PO (08:03)
[2023-03-19] MEDS ORDERED: ELIQUIS5 MG PO (08:04)
[2023-03-19] MEDS ORDERED: MAGIC CUP (08:06)
[2023-03-19] MEDS ORDERED: ENSURE PLUS PO (08:07)
[2023-03-19] MEDS ORDERED: TYLENOL 8 HOUR650 MG PO (08:09)
[2023-03-19] MEDS ORDERED: GENTEAL TEARS M1 SO1 OPTH (08:10)
[2023-03-19] MEDS ORDERED: ALUM-67 PO (08:13)
[2023-03-20 03:30] VITALS: BP 188/71; TEMP 98.2
[2023-03-20 07:36] LABS: PLATELET COUNT 496 K/uL (152-353)
[2023-03-20 07:56] LABS: POTASSIUM 4.5 mmol/L (3.6-5.2)
[2023-03-20 08:00] VITALS: BP 156/61; TEMP 98.5
[2023-03-20 12:00] VITALS: BP 139/49; TEMP 98.7
[2023-03-20 16:00] VITALS: BP 152/67; TEMP 98.6
[2023-03-20 19:50] VITALS: BP 149/70; TEMP 98.8
[2023-03-20 23:43] VITALS: BP 145/66; TEMP 98.8
[2023-03-21 04:00] VITALS: BP 177/65; TEMP 98.4
[2023-03-21 08:00] VITALS: BP 183/81; TEMP 98.6
[2023-03-21 09:27] LABS: PLATELET COUNT 514 K/uL (152-353)
[2023-03-21 12:00] VITALS: BP 147/61; TEMP 99.3
[2023-03-21] MEDS ORDERED: PANTOPRAZOLE 40MG TA PO (14:01)
[2023-03-21] MEDS ORDERED: ERTAPENEM1 GM IM (14:02)
[2023-03-21] MEDS ORDERED: SM IRON325 MG PO (14:04)
[2023-03-21] MEDS ORDERED: DOCU100C10 PO (14:05)
[2023-03-21 16:00] VITALS: BP 142/62; TEMP 99.2
== END 2023-03-21 17:55 | DRG 378 ==
LOC: ED 17:23 → MED/SURG 21:04
PROVIDERS: Emergency Medicine; Internal Medicine; ADMIT Internal Medicine; ATTEND Internal Medicine
DX: K92.2 Gastrointestinal hemorrhage, unspecified (principal); N39.0 Urinary tract infection, site not specified; D50.8 Other iron deficiency anemias; I16.0 Hypertensive urgency; R41.82 Altered mental status, unspecified; E03.8 Other specified hypothyroidism; I10 Essential (primary) hypertension; F03.C0 Unspecified dementia, severe, without behavioral disturbance, psychotic disturbance, mood disturbance, and anxiety; K21.9 Gastro-esophageal reflux disease without esophagitis; B96.29 Other Escherichia coli [E. coli] as the cause of diseases classified elsewhere; D72.828 Other elevated white blood cell count
CPT/HCPCS: 36415; 80048; 80053; 81000; 82272; 82607; 82728; 82746; 82948; 83540; 83550; 83880; 84436; 84443; 84466; 84484; 85027; 85379; 85610; 85730; 87077; 87086; 87088; 87186; 93005; 96365; 96367; 96368; 99284; J0696; J1335; J2916

== ENCOUNTER 2023-04-03 11:03 | Inpatient (IN) | payer OTHER ==
[~2023-04-03 11:03] MED LIST changes: +ALUM-67 PO; +DOCU100C10 PO; +ELIQUIS5 MG PO; +ENSURE PLUS PO; +ERTAPENEM1 GM IM; +GENTEAL TEARS M1 SO1 OPTH; +LOSA50TA PO; +MAGIC CUP; +PANTOPRAZOLE 40MG TA PO; +SM IRON325 MG PO; +TYLENOL 8 HOUR650 MG PO; +[UNRECOGNIZED DRUG - OTHER] OPTH
== END 2023-05-03 17:33 | disposition still patient (30) ==
LOC: PAVB 11:03
PROVIDERS: ADMIT Internal Medicine Endocrinology, Diabetes & Metabolism; ATTEND Internal Medicine Endocrinology, Diabetes & Metabolism

== ENCOUNTER 2023-05-30 07:29 | Outpatient (CLI) | payer OTHER ==
[2023-05-30 08:12] LABS: PLATELET COUNT 408 K/uL (152-353)
== END 2023-05-30 19:38 | disposition home or self-care (01) ==
LOC: US 07:29 → LAB 07:29
PROVIDERS: ATTEND Internal Medicine
DX: R06.02 Shortness of breath (principal); R60.0 Localized edema
CPT/HCPCS: 80048; 83880; 85027

== ENCOUNTER 2023-07-08 09:15 | Outpatient (CLI) | payer OTHER ==
[2023-07-08 10:46] LABS: PLATELET COUNT 424 K/uL (152-353)
[2023-07-08 11:00] LABS: POTASSIUM 3.7 mmol/L (3.6-5.2)
== END 2023-07-08 22:02 | disposition home or self-care (01) ==
LOC: LAB 09:15
PROVIDERS: ATTEND Internal Medicine
DX: E11.9 Type 2 diabetes mellitus without complications (principal); I10 Essential (primary) hypertension; E03.8 Other specified hypothyroidism; E78.00 Pure hypercholesterolemia, unspecified; E55.9 Vitamin D deficiency, unspecified
CPT/HCPCS: 80053; 80061; 82306; 83036; 84443; 85027